=== PATIENT | male | born 2000 | race Two or more races ===

== ENCOUNTER 2020-01-31 04:59 | Emergency (ER) | payer OTHER ==
[~2020-01-31] VITALS: Ht 165.1 cm; Wt 59.0 kg
[2020-01-31 05:15] VITALS: BP 111/73
--- NOTE | 2020-01-31 06:10 | NUR ---
PATIENT DISCAHRGED. IN CUSTODY. MEDICALLY CLEARED.
== END 2020-01-31 06:11 ==
LOC: ER 05:01
DX: R07.89 Other chest pain (principal); Z88.1 Allergy status to other antibiotic agents
CPT/HCPCS: 71045-TC